=== PATIENT | male | born 1970 | race Caucasian/White ===

== ENCOUNTER 2019-12-12 16:51 | Emergency (ER) | payer MEDICAID ==
[~2019-12-12] VITALS: Ht 175.3 cm; Wt 75.3 kg
[2019-12-12 16:57] VITALS: BP 109/73; Ht 175.3 cm; Wt 75.3 kg
[2019-12-12 17:47] LABS: BASOPHIL % 0.6 % (0-2); PLATELET COUNT 269 x10^3mcL (130-400); RED CELL DISTRIBUTION WIDTH 13.4 % (11.5-14.5)
[2019-12-12 18:01] LABS: ALBUMIN 3.9 g/dL (3.4-5.0); ALKALINE PHOSPHATASE 95 U/L (46-116); ALT/SGPT 31 U/L (16-63); AST/SGOT 24 U/L (15-37); BILIRUBIN TOTAL 0.3 mg/dL (0.20-1.00); CALCIUM 8.5 mg/dL (8.5-10.1); CARBON DIOXIDE 27.4 mmol/L (21-32); CREATININE SERUM 1.1 mg/dL (0.7-1.3); GFR1 > 60 mL/min; LIPASE 125 IU/L (73-393); TOTAL PROTEIN, SERUM 7.8 g/dL (6.4-8.2)
[2019-12-12 18:08] LABS: CHLORIDE SERUM 103 mmol/L (98-107); GLUCOSE SERUM 118 mg/dL (74-106); POTASSIUM SERUM 3.8 mmol/L (3.5-5.1); SODIUM SERUM 139 mmol/L (136-145)
== END 2019-12-12 18:32 | disposition home or self-care (01) ==
LOC: ED 16:51
PROVIDERS: Emergency Medicine
DX: K64.4 Residual hemorrhoidal skin tags (principal); Z98.890 Other specified postprocedural states
CPT/HCPCS: J1885

== ENCOUNTER 2020-04-26 08:53 | Emergency (ER) | payer OTHER ==
[~2020-04-26] VITALS: Ht 175.3 cm; Wt 75.3 kg
[2020-04-26 09:03] VITALS: Ht 175.3 cm; Wt 75.3 kg
[2020-04-26 10:13] VITALS: BP 115/71
== END 2020-04-26 10:13 | disposition home or self-care (01) ==
LOC: ED 08:53
DX: M54.5 Low back pain (principal); Z90.89 Acquired absence of other organs; X50.0XXA Overexertion from strenuous movement or load, initial encounter; Y93.89 Activity, other specified; Y92.89 Other specified places as the place of occurrence of the external cause; Y99.8 Other external cause status
CPT/HCPCS: J1885